=== PATIENT | male | born 1990 | race Hispanic/Latino ===

== ENCOUNTER 2016-09-06 17:52 | Emergency (ER) | payer MEDICAID ==
--- NOTE | 2016-09-06 21:58 | Emergency Department Report ---
ED General Adult HPI - General Chief complaint: Sore Throat Stated complaint: THROAT PAIN/GROWTH ON GROIN Time Seen by Provider: 09/06/16 21:48 Source: patient Mode of arrival: Ambulatory Limitations: No Limitations - History of Present Illness Initial comments: PT c/o sore throat x 2 days. PT states there is some improvement in pain today. PT States he feels drainage. PT also states that he noticed a bump to his groin 2 days ago. pt denies fevers, chills, n/v MD Complaint: sore throat -: Gradual Location: mouth, genitals Radiation: non-radiation Quality: dull, other (tender ) Consistency: constant Worsens with: none Associated Symptoms: denies: cough, headaches, nausea/vomiting, rash - Related Data Home Medications Medication Instructions Recorded Confirmed Last Taken Divalproex Sodium [Depakote] 500 mg PO DAILY 09/20/15 09/21/15 Unknown LORazepam [Ativan] 1 mg PO DAILY 09/20/15 09/21/15 Unknown OLANzapine [ZyPREXA] 10 mg PO DAILY 09/20/15 09/21/15 Unknown Sertraline [Zoloft] 25 mg PO QDAY 09/20/15 09/20/15 Unknown Previous Rx's Medication Instructions Recorded Last Taken Type Cetirizine HCl/Pseudoephedrine 1 each PO BID PRN #12 tab.er.12h 09/06/16 Unknown Rx [Cetirizine-Pse ER 5-120 mg Tab] Sulfamethoxazole/Trimethoprim 1 each PO BID #20 tablet 09/06/16 Unknown Rx [Bactrim DS TAB] Allergies Allergy/AdvReac Type Severity Reaction Status Date / Time No Known Allergies Allergy Unverified 09/20/15 12:31 ED Review of Systems ROS: Stated complaint: THROAT PAIN/GROWTH ON GROIN Other details as noted in HPI Comment: All other systems reviewed and negative Constitutional: denies: chills, fever ENT: throat pain. denies: congestion Respiratory: denies: cough, shortness of breath Gastrointestinal: denies: abdominal pain Genitourinary: other (mass to scrotum ). denies: discharge, testicular pain, testicular mass ED Past Medical Hx - Past Medical History Previous Medical History?: Yes Hx Psychiatric Treatment: Yes (schizoeffective disorder) - Surgical History Past Surgical History?: No - Social History Smoking Status: Current Every Day Smoker Substance Use Type: Alcohol - Medications Home Medications: Home Medications Medication Instructions Recorded Confirmed Last Taken Type Divalproex Sodium [Depakote] 500 mg PO DAILY 09/20/15 09/21/15 Unknown History LORazepam [Ativan] 1 mg PO DAILY 09/20/15 09/21/15 Unknown History OLANzapine [ZyPREXA] 10 mg PO DAILY 09/20/15 09/21/15 Unknown History Sertraline [Zoloft] 25 mg PO QDAY 09/20/15 09/20/15 Unknown History Cetirizine HCl/Pseudoephedrine 1 each PO BID PRN #12 tab.er.12h 09/06/16 Unknown Rx [Cetirizine-Pse ER 5-120 mg Tab] Sulfamethoxazole/Trimethoprim 1 each PO BID #20 tablet 09/06/16 Unknown Rx [Bactrim DS TAB] ED Physical Exam - General Limitations: No Limitations General appearance: alert, in no apparent distress - Head Head exam: Present: atraumatic, normocephalic - Eye Eye exam: Present: normal appearance. Absent: conjunctival injection - ENT ENT exam: Present: normal exam, mucous membranes moist, TM's normal bilaterally , normal external ear exam - Expanded ENT Exam Expanded Mouth exam: Absent: drooling, trismus Throat exam: Positive: other (moderate amount of clear post nasal drainage ). Negative: tonsillar erythema, tonsillomegaly, tonsillar exudate, R peritonsillar mass, L peritonsillar mass - Neck Neck exam: Present: normal inspection, full ROM. Absent: lymphadenopathy - Respiratory Respiratory exam: Present: normal lung sounds bilaterally. Absent: respiratory distress - Cardiovascular Cardiovascular Exam: Present: regular rate, normal rhythm, normal heart sounds - GI/Abdominal GI/Abdominal exam: Present: soft. Absent: tenderness - exam: Present: circumcision. 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 Absent: tenderness - Neurological Exam Neurological exam: Present: alert, oriented X3 - Psychiatric Psychiatric exam: Present: normal mood, flat affect - Skin Skin exam: Present: warm, dry, erythema (to abscess ) ED Course Vital Signs 09/06/16 18:01 Temperature 98.6 F Pulse Rate 102 H Respiratory 16 Rate Blood Pressure 144/98 O2 Sat by Pulse 100 Oximetry - Reevaluation(s) Reevaluation #1: 09/06/16 22:01 PT aware of dx and plan of care. PT aware the abscess is not ready to be drained yet. PT aware he will be started on antibiotics. PT advised to do warm compresses and return in 2 days for recheck Reevaluation #2: 09/06/16 22:10 pt's bp repeated, bp improved. pt aware his bp will need to be recheck on follow up - Pulse Oximetry Interpretation Digit-Finger Initial Pulse Oximetry Readin Actions Taken: none ED Medical Decision Making - Differential Diagnosis strep phayrngits, uri, abscess Critical care attestation.: If time is entered above; I have spent that time in minutes in the direct care of this critically ill patient, excluding procedure time. ED Disposition Clinical Impression: Post-nasal drainage, Abscess of groin, left Disposition: DISCHARGED TO HOME OR SELFCARE Is pt being admited?: No Does the pt Need Aspirin: No Condition: Stable Instructions: Allergic Rhinitis (ED), Allergies (ED), Abscess (ED) Additional Instructions: Warm compresses to abscess at least 4 times a day. Follow up with PCP or return to the ED in 2 days for recheck Return to the ED if you develop fevers, chills, nausea, vomiting or have concerns Recheck BP on your follow up Prescriptions: Cetirizine HCl/Pseudoephedrine [Cetirizine-Pse ER 5-120 mg Tab] 1 each PO BID PRN #12 tab.er.12h PRN Reason: Allergy Symptoms Sulfamethoxazole/Trimethoprim [Bactrim DS TAB] 1 each PO BID #20 tablet Referrals: PRIMARY CARE, [Primary Care Provider] - 3-5 Days Forms: Work/School Release Form(ED) Time of Disposition: 22:04
[2016-09-06 22:12] VITALS: BP 134/88
== END 2016-09-06 22:54 | disposition home or self-care (01) ==
LOC: ED 17:52
DX: L02.214 Cutaneous abscess of groin (principal); R09.81 Nasal congestion; F17.200 Nicotine dependence, unspecified, uncomplicated
CPT/HCPCS: 99282

== ENCOUNTER 2016-12-14 23:33 | Emergency (ER) | payer MEDICAID ==
[2016-12-15] MEDS ORDERED: MOTRIN PO ONE (04:28)
--- NOTE | 2016-12-15 04:28 | Emergency Department Report ---
HPI - General Chief Complaint: Dental/Oral Time Seen by Provider: 12/15/16 03:49 - HPI HPI: Patient here reported of toothache 2 days. Denies any fever or chills. Pain is located and his right lower back tooth. Pain is 2 out of 10. Denies any facial swelling. No access the dentist. ED Past Medical Hx - Past Medical History Previous Medical History?: Yes Hx Psychiatric Treatment: Yes (schizoeffective disorder) - Surgical History Past Surgical History?: No - Family History Family history: no significant - Social History Smoking Status: Current Every Day Smoker Substance Use Type: Alcohol - Medications Home Medications: Home Medications Medication Instructions Recorded Confirmed Last Taken Type Divalproex Sodium [Depakote] 500 mg PO DAILY 09/20/15 12/15/16 1 Day Ago History LORazepam [Ativan] 1 mg PO DAILY 09/20/15 12/15/16 Unknown History OLANzapine [ZyPREXA] 10 mg PO DAILY 09/20/15 12/15/16 1 Day Ago History Acetaminophen/Codeine [Tylenol 1 tab PO Q6H PRN #12 tab 12/15/16 Unknown Rx /Codeine # 3 tab] Amoxicillin [Amoxicillin TAB] 875 mg PO BID #20 tablet 12/15/16 Unknown Rx Ibuprofen [Motrin] 600 mg PO Q8H PRN #15 tablet 12/15/16 Unknown Rx ED Review of Systems ROS: Stated complaint: TOOTHACHE/NECK PAIN/ORBITAL PAIN Other details as noted in HPI Comment: All other systems reviewed and negative Constitutional: denies: chills, fever Eyes: denies: eye pain, eye discharge ENT: dental pain. denies: ear pain, throat pain, hearing loss, epistaxis, congestion Respiratory: no symptoms reported Cardiovascular: denies: chest pain, palpitations, edema, syncope Gastrointestinal: denies: nausea, vomiting Musculoskeletal: denies: back pain, joint swelling, arthralgia Skin: denies: rash Neurological: denies: headache Physical Exam - Physical Exam Vital Signs: Vital Signs 12/15/16 01:11 Temperature 97.3 F L Pulse Rate 93 H Respiratory 16 Rate Blood Pressure 140/89 O2 Sat by Pulse 97 Oximetry General: This is a 26-year-old male well-nourished well-developed in no acute distress. Physical Exam: Head: Normocephalic atraumatic Mouth: Moist, no pharyngeal exudate or erythema. Uvula is midline and oral airway is patent. Positive gingival enlargement with dental tenderness to right lower tooth #32. No cellulitis or induration noted. Noted fractured tooth to #32. noted multiple dental caries.. No facial swelling. No peritonsillar abscesses. Neck: Supple, no C-spine tenderness, no tracheal deviation. Nontender to palpate. no adenopathy Ears: Bilateral TMs pearly nova.bilateral EAC without any redness swelling or drainage Eyes: Bilateral pupils equal and reactive to light, bilateral EOM intact. Bilateral sclera and conjunctiva without injection. Normal accommodation Nose: Mucosa moist, normal mucosa. maxillary and frontal sinus non-tender to palpate. Lungs: Clear to auscultate bilaterally no rhonchi wheezes or rales. Normal work of breathing extremity; No CCE. +2 pulses. No neurovascular compromise Cardiovascular: S1-S2, regular rate rhythm. No murmurs. Skin: clean Dry and intact no rash no lesions Psych: Normal mood and behavior ED Course Vital Signs 12/15/16 01:11 Temperature 97.3 F L Pulse Rate 93 H Respiratory 16 Rate Blood Pressure 140/89 O2 Sat by Pulse 97 Oximetry - Reevaluation(s) Reevaluation #1: 12/15/16 04:40 Patient given Motrin 800 mg in emergency room for toothache. ED Medical Decision Making - Medical Decision Making ED course: Patient here for toothache and found to have multiple dental caries, gingival enlargement and fractured tooth. I discussed the patient that I can put him on antibiotic and pain medication but he will need to follow up with dentist. Patient given Motrin 800 mg in emergency room. I instructed patient to see discharge instruction paperwork for dental clinic referral. He was undescended discharge diagnosis and treatment plan and discharged home with prescription for Motrin, Tylenol 3 and amoxicillin. Critical care attestation.: If time is entered above; I have spent that time in minutes in the direct care of this critically ill patient, excluding procedure time. ED Disposition Clinical Impression: Toothache, Gingival enlargement, Dental caries noted on examination Fractured tooth Qualifiers: Encounter type: initial encounter Fracture type: closed Qualified Code(s): S02.5XXA - Fracture of tooth (traumatic), initial encounter for closed fracture Disposition: TO HOME OR SELFCARE Is pt being admited?: No Does the pt Need Aspirin: No Condition: Stable Instructions: Dental Caries (ED), Toothache (ED) Additional Instructions: Please see dentist information in U discharge paperwork and call tomorrow to schedule an appointment for visit. You have poor gums and fractured tooth that needs to be repaired so you will need to take antibiotic as prescribed and follow up with a dentist. Please do not drive or operate heavy machinery while taking Tylenol No. 3 as this medication will cause drowsiness Prescriptions: Acetaminophen/Codeine [Tylenol /Codeine # 3 tab] 1 tab PO Q6H PRN #12 tab PRN Reason: Toothache Amoxicillin [Amoxicillin TAB] 875 mg PO BID #20 tablet Ibuprofen [Motrin] 600 mg PO Q8H PRN #15 tablet PRN Reason: Pain Referrals: [facility] [Outside] - 2-3 Days Forms: Work/School Release Form(ED)
[2016-12-15 04:58] VITALS: BP 128/80
== END 2016-12-15 04:58 | disposition home or self-care (01) ==
LOC: ED 23:33
DX: S02.5XXA Fracture of tooth (traumatic), initial encounter for closed fracture (principal); K02.9 Dental caries, unspecified; F20.9 Schizophrenia, unspecified; F17.210 Nicotine dependence, cigarettes, uncomplicated; X58.XXXA Exposure to other specified factors, initial encounter; Y93.89 Activity, other specified; Y92.89 Other specified places as the place of occurrence of the external cause; Y99.8 Other external cause status
CPT/HCPCS: 99282

== ENCOUNTER 2017-05-16 07:16 | Emergency (ER) | payer MEDICAID ==
[2017-05-16 08:27] LABS: Hemoglobin TNR gm/dl (11.8-15.2); Red Blood Count TNR M/mm3 (3.65-5.03)
[2017-05-16 08:28] LABS: Hematocrit TNR % (35.5-45.6)
[2017-05-16 08:29] LABS: Mean Corpuscular HGB Conc TNR % (32-34); Mean Corpuscular Hemoglobin TNR pg (28-32); Mean Corpuscular Volume TNR fl (84-94); Platelet Count TNR K/mm3 (140-440); Red Cell Distribution Width TNR % (13.2-15.2)
[2017-05-16 08:30] LABS: Basophils % (Auto) TNR % (0.0-1.8); Eosinophils % (Auto) TNR % (0.0-4.3)
[2017-05-16 08:33] LABS: BUN/Creatinine Ratio 18; Blood Urea Nitrogen 14 mg/dL (9-20); Calcium 9.6 mg/dL (8.4-10.2); Carbon Dioxide 24 mmol/L (22-30); Chloride 98.7 mmol/L (98-107); Glucose 91 mg/dL (75-100); Sodium 139 mmol/L (137-145); White Blood Count TNR K/mm3 (4.5-11.0)
[2017-05-16 08:37] LABS: Anion Gap 21 mmol/L; Potassium 4.6 mmol/L (3.6-5.0)
[2017-05-16 09:05] LABS: Basophils % (Auto) 0.7 % (0.0-1.8); Hematocrit 40.9 % (35.5-45.6); Hemoglobin 13.6 gm/dl (11.8-15.2); Mean Corpuscular HGB Conc 33 % (32-34); Mean Corpuscular Hemoglobin 28 pg (28-32); Mean Corpuscular Volume 84 fl (84-94); Mean Platelet Volume 11.3 fl (6-12); Platelet Count 105 K/mm3 (140-440); Red Blood Count 4.86 M/mm3 (3.65-5.03); Red Cell Distribution Width 14.2 % (13.2-15.2); White Blood Count 5.9 K/mm3 (4.5-11.0)
[2017-05-16 10:53] LABS: Urine Drugs of Abuse Note Disclamer
[2017-05-16 11:02] LABS: Bilirubin,Urine NEG (Negative); Blood,Urine NEG (Negative); Ketones,Urine NEG (Negative); Leukocyte Esterase,Urine NEG (Negative); Mucus,Urine FEW /HPF; Nitrite,Urine NEG (Negative); Protein,Urine <15 mg/dL mg/dL (Negative); RBC,Urine < 1.0 /HPF (0.0-6.0); WBC,Urine < 1.0 /HPF (0.0-6.0)
[2017-05-16] MEDS ORDERED: TYLENOL PO PRN (13:14)
[2017-05-16] MEDS ORDERED: MILK OF MAGNESIA PO PRN (13:14)
[2017-05-16] MEDS ORDERED: ATIVAN PO PRN (13:14)
[2017-05-16] MEDS ORDERED: ALUM-MAG HYDROX-SIMETH 200-200-20MG/5ML PO PRN (13:14)
[2017-05-16] MEDS ORDERED: ATIVAN IM PRN (13:15)
--- NOTE | 2017-05-16 13:16 | Emergency Department Report ---
HPI - General Chief Complaint: Psych Time Seen by Provider: 05/16/17 08:10 - HPI HPI: The patient's is a 26 yo male with a history of schizophrenia noncompliant with acute psychotic medication regimen, who presents for evaluation of mental health. The patient's family says that the patient has been withdrawing, delusional, physically aggressive toward the family pets, symptoms constant and severe for the past one day. The patient states that he is unsure if he is currently experiencing suicidal ideations. The patient denies fever, headache, unexplained weight loss or weight gain, heat or cold intolerance, skin, hair, or nail changes, neuro deficits, homicidal ideations. ED Past Medical Hx - Past Medical History Previous Medical History?: Yes Hx Psychiatric Treatment: Yes (schizoeffective disorder) - Surgical History Past Surgical History?: No - Social History Smoking Status: Current Every Day Smoker Substance Use Type: Alcohol - Medications Home Medications: Home Medications Medication Instructions Recorded Confirmed Last Taken Type OLANzapine [ZyPREXA] 2.5 mg PO QDAY 05/16/17 05/16/17 Unknown History ED Review of Systems ROS: Stated complaint: MENTAL HEALTH EVALUATION Other details as noted in HPI Constitutional: denies: fever ENT: denies: throat or neck pain Respiratory: denies: cough, shortness of breath Cardiovascular: denies: chest pain Endocrine: denies unexplained weight loss or gain Gastrointestinal: denies: abdominal pain, nausea Genitourinary: denies: dysuria Musculoskeletal: denies: leg swelling Skin: denies: rash Neurological: denies: headache Hematological/Lymphatic: denies: easy bleeding or easy bruising Psych: reports aggressiveness (per sister) Physical Exam - Physical Exam Vital Signs: Vital Signs 05/16/17 07:39 Temperature 98.2 F Pulse Rate 113 H Respiratory 20 Rate Blood Pressure 131/80 O2 Sat by Pulse 98 Oximetry Physical Exam: General: well-nourished, well-developed, no acute distress Head: Normocephalic, atraumatic Eyes: normal sclera ENT: Mucous membranes are pink and moist Neck: trachea midline, neck supple, No neck stiffness, no cervical adenopathy Respiratory: Breath sounds equal bilaterally, no wheezing, rales, or rhonchi Cardio: S1 and S2 present, no murmurs, rubs, gallops, capillary refill is brisk Musc: No pitting edema Skin: No rash Neuro: no facial drooping, normal speech Psych: Flat affect, patient withdrawn, poor insight, delusional ED Course Vital Signs 05/16/17 07:39 Temperature 98.2 F Pulse Rate 113 H Respiratory 20 Rate Blood Pressure 131/80 O2 Sat by Pulse 98 Oximetry ED Medical Decision Making - Lab Data Result diagrams: 05/16/17 08:41 05/16/17 07:51 - Medical Decision Making The patient was seen and examined by myself. The patient is placed on a director cardiac and continuous pulse ox. On initial evaluation, the patient was found to be in no distress. Labs are obtained. Lab results are grossly unremarkable. The patient is medically clear. Mental health is consulted. Mental health evaluates the patient and agrees that the patient is at risk of harm to self. A 1013 is completed. The patient will be admitted to a psychiatric facility once bed placement is obtained. Critical care attestation.: If time is entered above; I have spent that time in minutes in the direct care of this critically ill patient, excluding procedure time. ED Disposition Clinical Impression: Schizophrenia, acute, Acute psychosis Disposition: [id number] PSY HOSP/PSY UNIT Is pt being admited?: No Does the pt Need Aspirin: No Condition: Fair Referrals: PRIMARY CARE [Primary Care Provider] - 3-5 Days Time of Disposition: 13:16
--- NOTE | 2017-05-16 16:18 | Consultation ---
History of Present Illness - Reason for Consult Consult date: 05/16/17 Reason for consult: psychiatric evaluation - Chief Complaint Chief complaint: nonverbal - History of Present Psychiatric Illness Juan Pablo Harley is a 26 yo male with a history of schizophrenia brought in for bizarre behavior. Juan Pablo's [id number] provided collateral. She and her are from [place] and came to visit. While in [place] they realized how Juan Pablo has decompensated. He has been pacing for hours and has not slept in 2 -3 days. He is non verbal on interview. He was reportedly aggressive with a pet. This is not his usual behavior per the family. He has been peeping at neighbors and urinating in their yards. He was hospitalized 2 months ago for psychosis and followed up at [facility], Dr. Downs. He was recently taken off depakote and started on zyprexa 2.5mg daily. He is not on any other medications , injection or oral. He normally lives with his 79 year old grandmother. One year ago his caregiver and then he went to live with his grandmother. Unable to obtain additional information from the patient. His [id number] says he has told her recently he hears voices which tell him to do things. He has also told her he has suicidal and homicidal ideation when he is "sick." She says he has become fearful and hesitant with most of his actions. She says he has been eating. He has a history of smoking marijuana occasionally and drinks alcohol occasionally. With his last hospitalization he was aware and sought treatment before he worsened. Medications and Allergies Allergies Allergy/AdvReac Type Severity Reaction Status Date / Time No Known Allergies Allergy Unverified 09/20/15 12:31 Home Medications Medication Instructions Recorded Confirmed Last Taken Type OLANzapine [ZyPREXA] 2.5 mg PO QDAY 05/16/17 05/16/17 Unknown History Active Meds: Active Medications Acetaminophen (Tylenol) 650 mg PO Q4HR PRN PRN Reason: Pain MILD(1-3)/Fever >100.5/ALVARENGA Al Hydrox/Mg Hydrox/Simethicone (Alum-Mag Hydrox-Simeth [id number]/5ml) 30 ml PO Q4HR PRN PRN Reason: Indigestion Lorazepam (Ativan) 1 mg PO Q4HR PRN PRN Reason: Agitation Last Admin: 05/16/17 15:04 Dose: 1 mg Lorazepam (Ativan) 1 mg IM Q4H PRN PRN Reason: Agitation Magnesium Hydroxide (Milk Of Magnesia) 30 ml PO Q12HR PRN PRN Reason: Constipation Past psychiatric history - Past Medical History Past Medical History: No medical history - past Psychiatric treatment and history Psych: Schizophrenia - Social History Social history: lives with family Mental Status Exam - Vital signs Last Vital Signs Temp 98.2 F 05/16/17 07:39 Pulse 113 H 05/16/17 07:39 Resp 20 05/16/17 07:39 BP 131/80 05/16/17 07:39 Pulse Ox 98 05/16/17 07:39 - Exam Narrative exam: he does not make eye contact psychomotor activity is restless unable to obtain thought process or content. Results Result Diagrams: 05/16/17 08:41 05/16/17 07:51 Abnormal lab results 05/16/17 Range/Units 08:41 Plt Count 105 L (140-440) K/mm3 Lymph % (Auto) 38.5 H (13.4-35.0) % Cloud % (Auto) 10.6 H (0.0-7.3) % All other labs normal. Assessment and Plan Assessment and plan: Impression:Psychosis r/o catatonia Dx: schizophrenia r/o schizoaffective d/o Recommendation: 1013 and transfer to inpatient psychiatric facility for stabilization. ck ordered. Ativan was previously ordered for agitation. No scheduled medication ordered until ck reviewed.
[2017-05-17 09:02] VITALS: BP 126/64
--- NOTE | 2017-05-17 13:47 | Progress Note ---
Subjective - Reason for Consult Consult date: 05/17/17 Reason for consult: Psychiatry Follow-up - Chief Complaint Chief complaint: "Hello" 26 yo male with a history of schizophrenia brought in for bizarre behavior. Today patient is calm and cooperative, but disorganized during the assessment. His answers to questions asked of him were not logical. When asked about being suicidal, he could not confirm or deny. He denies HI's and AVH's. Mental Status Exam - Vital signs Last Vital Signs Temp 98.7 F 05/17/17 09:01 Pulse 88 05/17/17 09:01 Resp 20 05/17/17 09:02 BP 126/64 05/17/17 09:01 Pulse Ox 100 05/17/17 09:02 - Exam Narrative exam: MSE: Appearance: calm, cooperative Behavior: regular eye contact Speech: regular rate and tone Mood: "okay" Affect: constricted Thought Process: not logical Thought Content: denies HI's and AVH's, disorganized Motor Activity: sitting up in bed Cognition: A/O x3 Insight: poor Judgment: poor Assessment and Plan Impression: Schizophrenia. Today patient is calm and cooperative, but disorganized during the assessment. Positive for PCP. DDx: R/O Schizoaffective DO Recommendation: Continue 1013 and with placement to RTC today.
== END 2017-05-17 09:11 ==
LOC: ED 07:16 → EEVIPCON 07:16 → ED 05-17 09:11
DX: F23 Brief psychotic disorder (principal); F20.89 Other schizophrenia; F17.200 Nicotine dependence, unspecified, uncomplicated
CPT/HCPCS: 36415; 80048; 80307; 81001; 82550; 85025; 99285; G0480; 80320

== ENCOUNTER 2017-06-13 13:42 | Emergency (ER) | payer MEDICAID ==
[2017-06-13 13:49] VITALS: BP 120/70
--- NOTE | 2017-06-13 14:30 | Emergency Department Report ---
Chief Complaint: Urogenital-Male Stated Complaint: SPHYLLIS Time Seen by Provider: 06/13/17 14:29 - HPI History of Present Illness: vss no life threat waiting in wr - Exam Vital Signs: Vital Signs 06/13/17 13:45 Temperature 98.3 F Pulse Rate 100 H Respiratory 16 Rate Blood Pressure 120/70 O2 Sat by Pulse 100 Oximetry MSE screening note: Focused history and physical exam performed. Due to findings the following was ordered: ED Disposition for MSE Condition: Stable
[2017-06-13 15:13] LABS: Bilirubin,Urine NEG (Negative); Blood,Urine NEG (Negative); Color,Urine Yellow (Yellow); Mucus,Urine FEW /HPF; Nitrite,Urine NEG (Negative); Protein,Urine <15 mg/dL mg/dL (Negative)
== END 2017-06-13 15:00 | disposition left against medical advice (07) ==
LOC: ED 13:42
DX: A53.9 Syphilis, unspecified (principal); Z53.21 Procedure and treatment not carried out due to patient leaving prior to being seen by health care provider
CPT/HCPCS: 81001

== ENCOUNTER 2017-06-14 18:20 | Emergency (ER) | payer MEDICAID ==
[2017-06-14 20:21] LABS: Bilirubin,Urine NEG (Negative); Blood,Urine NEG (Negative); Color,Urine Yellow (Yellow); Nitrite,Urine NEG (Negative); Protein,Urine <15 mg/dL mg/dL (Negative); Urobilinogen,Urine < 2.0 mg/dL (<2.0); WBC,Urine < 1.0 /HPF (0.0-6.0)
[2017-06-14 20:29] LABS: Amphetamine Screen,Urine PRESUMPTIVE NEGATIVE; Benzodiazepines Screen,Urine PRESUMPTIVE NEGATIVE; Cannabinoid Screen,Urine PRESUMPTIVE NEGATIVE; Cocaine Screen,Urine PRESUMPTIVE NEGATIVE; Methadone Screen,Urine PRESUMPTIVE NEGATIVE; Opiate Screen,Urine PRESUMPTIVE NEGATIVE
[2017-06-14 21:06] LABS: Basophils % (Auto) 0.5 % (0.0-1.8); Eosinophils % (Auto) 0.6 % (0.0-4.3); Hematocrit 42.2 % (35.5-45.6); Hemoglobin 13.9 gm/dl (11.8-15.2); Lymphocytes # (Auto) 2.3 K/mm3 (1.2-5.4); Lymphocytes % (Auto) 34.5 % (13.4-35.0); Mean Corpuscular HGB Conc 33 % (32-34); Mean Corpuscular Hemoglobin 28 pg (28-32); Mean Corpuscular Volume 85 fl (84-94); Monocytes # (Auto) 0.5 K/mm3 (0.0-0.8); Monocytes % (Auto) 7.4 % (0.0-7.3); Red Blood Count 4.95 M/mm3 (3.65-5.03); Red Cell Distribution Width 15.3 % (13.2-15.2)
--- NOTE | 2017-06-14 21:18 | Emergency Department Report ---
ED Psych HPI - General Chief Complaint: Psych Stated Complaint: SUICIDAL THOUGHTS Time Seen by Provider: 06/14/17 21:07 Source: EMS Mode of arrival: Ambulatory Limitations: No Limitations - History of Present Illness Initial Comments: 26 YO MALE C/O SUICIDAL IDEATION AND WANTED [employer] THE POLICE TO KILL HIM. HE ALSO IS HERE FOR BURNING ON URINATION FOR A COUPLE OF WEEKS. HE DENIES DISCHARGE FROM PENIS OR RASH, OR ULCERATIONS, OR VESICLES. HE AND UNPROTECTED SEX WITH SOME ONE AND THINKS HE HAS AN STD. MD Complaint: suicidal ideation -: Sudden History of same: Yes If Self Harm: admits thoughts of - Related Data Home Medications Medication Instructions Recorded Confirmed Last Taken OLANzapine [ZyPREXA] 2.5 mg PO QDAY 05/16/17 05/16/17 Unknown Allergies Allergy/AdvReac Type Severity Reaction Status Date / Time blueberry Allergy Hives Verified 06/13/17 13:45 ED Review of Systems ROS: Stated complaint: SUICIDAL THOUGHTS Other details as noted in HPI Constitutional: denies: chills, fever Eyes: denies: eye pain, eye discharge, vision change ENT: denies: ear pain, throat pain Respiratory: denies: cough, shortness of breath, wheezing Cardiovascular: denies: chest pain, palpitations Endocrine: no symptoms reported Gastrointestinal: denies: abdominal pain, nausea, diarrhea Genitourinary: dysuria Musculoskeletal: denies: back pain, joint swelling, arthralgia Skin: denies: rash, lesions Neurological: denies: headache, weakness, paresthesias Psychiatric: denies: anxiety, depression Hematological/Lymphatic: denies: easy bleeding, easy bruising ED Past Medical Hx - Past Medical History Previous Medical History?: Yes Hx Psychiatric Treatment: Yes (schizoeffective disorder) - Surgical History Past Surgical History?: No - Social History Smoking Status: Current Every Day Smoker Substance Use Type: Alcohol - Medications Home Medications: Home Medications Medication Instructions Recorded Confirmed Last Taken Type OLANzapine [ZyPREXA] 2.5 mg PO QDAY 05/16/17 05/16/17 Unknown History ED Physical Exam - General Limitations: No Limitations General appearance: alert, in no apparent distress - Head Head exam: Present: atraumatic, normocephalic - Eye Eye exam: Present: normal appearance, EOMI - ENT ENT exam: Present: mucous membranes moist - Neck Neck exam: Present: normal inspection - Respiratory Respiratory exam: Present: normal lung sounds bilaterally. Absent: respiratory distress - Cardiovascular Cardiovascular Exam: Present: regular rate, normal rhythm. Absent: systolic murmur, diastolic murmur, rubs, gallop - GI/Abdominal GI/Abdominal exam: Present: soft, normal bowel sounds - Rectal Rectal exam: Present: deferred - Extremities Exam Extremities exam: Present: normal inspection, full ROM - Back Exam Back exam: Present: normal inspection, full ROM - Neurological Exam Neurological exam: Present: alert, oriented X3, CN II-XII intact - Psychiatric Psychiatric exam: Present: normal affect, normal mood, suicidal ideation. Absent: depressed, agitated, anxious, manic, homicidal ideation - Skin Skin exam: Present: warm, dry, intact, normal color. Absent: rash ED Course Vital Signs 06/14/17 06/14/17 06/14/17 19:38 19:49 19:53 Temperature 98.6 F Pulse Rate 79 Respiratory 18 18 Rate Blood Pressure 116/70 O2 Sat by Pulse 100 98 Oximetry ED Medical Decision Making - Lab Data Result diagrams: 06/14/17 20:36 06/14/17 20:36 - Medical Decision Making MENTAL HEALTH CONTINUOUS CONVEYOR SCREEN DRIER HAS DETERMINED THAT THE PT IS NOT SUICIDAL BUT SAID THTA TO BEEN SEEN QUICKER FOR HIS STD. HE WILL BE REFERRED OUTPT Critical care attestation.: If time is entered above; I have spent that time in minutes in the direct care of this critically ill patient, excluding procedure time. ED Disposition Clinical Impression: STD (sexually transmitted disease), Suicidal ideation Disposition: - TO HOME OR SELFCARE Is pt being admited?: No Does the pt Need Aspirin: No Condition: Stable Instructions: Sexually Transmitted Diseases (ED), Suicide Prevention for Adults (ED) Additional Instructions: PLEASE FOLLOW UP AT THE [facility] IF YOU FEEL DEPRESSED OR SUICIDAL. PLEASE HAVE YOUR SEXUAL PARTNERS TREATED FOR STD. Referrals: IFRAH SARMIENTO MD [Primary Care Provider] - 3-5 Days [facility] [Outside] - 3-5 Days
[2017-06-14 21:20] LABS: BUN/Creatinine Ratio 14; Blood Urea Nitrogen 11 mg/dL (9-20); Calcium 9.2 mg/dL (8.4-10.2); Hemolysis Index 4
[2017-06-14 21:25] LABS: Platelet Count 97 K/mm3 (140-440)
[2017-06-14 22:08] LABS: Alanine Aminotransferase 11 units/L (7-56); Albumin 4.6 g/dL (3.9-5)
[2017-06-14 22:25] LABS: Bilirubin,Direct < 0.2 mg/dL (0-0.2)
[2017-06-15] MEDS ORDERED: ROCEPHIN IM ONE (04:02)
[2017-06-15] MEDS ORDERED: XYLOCAINE 1% MPF 5 mL INFILTRATI ONE (04:02)
[2017-06-15] MEDS ORDERED: ZITHROMAX PO ONE (04:02)
[2017-06-15 04:50] VITALS: BP 139/97
== END 2017-06-15 05:36 | disposition home or self-care (01) ==
LOC: ED 18:20 → EEVIPCON 18:20 → ED 06-15 05:36
DX: R45.851 Suicidal ideations (principal); A64 Unspecified sexually transmitted disease; F17.200 Nicotine dependence, unspecified, uncomplicated; Z91.018 Allergy to other foods
CPT/HCPCS: 36415; 80048; 80074; 80307; 81001; 85025; 96372; 99284; G0480; J0696; 80320

== ENCOUNTER 2017-10-25 14:27 | Emergency (ER) | payer MEDICAID ==
[2017-10-25 15:35] LABS: Basophils % (Auto) 0.7 % (0.0-1.8); Eosinophils % (Auto) 1.1 % (0.0-4.3); Hematocrit 44.2 % (35.5-45.6); Hemoglobin 14.5 gm/dl (11.8-15.2); Lymphocytes # (Auto) 2.2 K/mm3 (1.2-5.4); Lymphocytes % (Auto) 50.4 % (13.4-35.0); Mean Corpuscular HGB Conc 33 % (32-34); Mean Corpuscular Hemoglobin 28 pg (28-32); Mean Corpuscular Volume 86 fl (84-94); Monocytes # (Auto) 0.5 K/mm3 (0.0-0.8); Monocytes % (Auto) 10.5 % (0.0-7.3); Red Blood Count 5.13 M/mm3 (3.65-5.03); Red Cell Distribution Width 13.6 % (13.2-15.2)
[2017-10-25 15:38] LABS: Platelet Count 120 K/mm3 (140-440)
[2017-10-25 15:48] LABS: BUN/Creatinine Ratio 15; Blood Urea Nitrogen 15 mg/dL (9-20); Calcium 9.6 mg/dL (8.4-10.2); Hemolysis Index 7
[2017-10-25 16:00] LABS: Bilirubin,Urine SM (Negative); Blood,Urine NEG (Negative); Color,Urine Amber (Yellow); Mucus,Urine 3+ /HPF
[2017-10-25 16:04] LABS: Ictotest,Urine Negative (Negative)
[2017-10-25 16:09] LABS: Amphetamine Screen,Urine PRESUMPTIVE NEGATIVE; Benzodiazepines Screen,Urine PRESUMPTIVE NEGATIVE; Cannabinoid Screen,Urine PRESUMPTIVE NEGATIVE; Cocaine Screen,Urine PRESUMPTIVE NEGATIVE; Methadone Screen,Urine PRESUMPTIVE NEGATIVE; Opiate Screen,Urine PRESUMPTIVE NEGATIVE
--- NOTE | 2017-10-25 21:51 | Emergency Department Report ---
ED Psych HPI - General Chief Complaint: Psych Stated Complaint: ABD PAIN Time Seen by Provider: 10/25/17 16:15 Source: patient Mode of arrival: Ambulatory - History of Present Illness Initial Comments: Patient is a 27-year-old [place]inamese male with past medical history of schizoaffective disease who states that he's having feelings that he wants to hurt someone. Patient states he is hearing voices and is having homicidal ideations. Patient does not have a plan he would like to kill. Patient states the auditory hallucinations are demanding of him to do things. Patient states he is here to get help. - Related Data Home Medications Medication Instructions Recorded Confirmed Last Taken OLANzapine [ZyPREXA] 2.5 mg PO QDAY 05/16/17 05/16/17 Unknown Allergies Allergy/AdvReac Type Severity Reaction Status Date / Time blueberry Allergy Hives Verified 06/13/17 13:45 ED Review of Systems ROS: Stated complaint: ABD PAIN Other details as noted in HPI Comment: All other systems reviewed and negative ED Past Medical Hx - Past Medical History Hx Psychiatric Treatment: Yes (schizoeffective disorder) - Social History Smoking Status: Current Every Day Smoker Substance Use Type: None - Medications Home Medications: Home Medications Medication Instructions Recorded Confirmed Last Taken Type OLANzapine [ZyPREXA] 2.5 mg PO QDAY 05/16/17 05/16/17 Unknown History ED Physical Exam - General Limitations: No Limitations General appearance: alert, in no apparent distress - Head Head exam: Present: atraumatic, normocephalic - Eye Eye exam: Present: normal appearance - ENT ENT exam: Present: mucous membranes moist - Neck Neck exam: Present: normal inspection - Respiratory Respiratory exam: Present: normal lung sounds bilaterally. Absent: respiratory distress - Cardiovascular Cardiovascular Exam: Present: regular rate, normal rhythm. Absent: systolic murmur, diastolic murmur, rubs, gallop - GI/Abdominal GI/Abdominal exam: Present: soft, normal bowel sounds - Rectal Rectal exam: Present: deferred - Extremities Exam Extremities exam: Present: normal inspection - Back Exam Back exam: Present: normal inspection - Neurological Exam Neurological exam: Present: alert, oriented X3 - Psychiatric Psychiatric exam: Present: normal mood, flat affect - Skin Skin exam: Present: warm, dry, intact, normal color. Absent: rash ED Course Vital Signs 10/25/17 10/25/17 15:02 15:48 Temperature 98.2 F 97.6 F Pulse Rate 92 H 96 H Respiratory 18 18 Rate Blood Pressure 112/75 Blood Pressure 131/73 [Left] O2 Sat by Pulse 98 99 Oximetry ED Medical Decision Making - Lab Data Result diagrams: 10/25/17 15:19 10/25/17 15:19 - Medical Decision Making Patient was observed responding to internal stimuli and has disorganized thoughts and homicidal thoughts as well. Patient will be sent to a psych facility for further evaluation. Patient is stable for psych evaluation. Critical care attestation.: If time is entered above; I have spent that time in minutes in the direct care of this critically ill patient, excluding procedure time. ED Disposition Clinical Impression: Homicidal ideation, Acute psychosis Disposition: [id number]/[id number] PSY HOSP/PSY UNIT Is pt being admited?: No Does the pt Need Aspirin: No Condition: Stable Referrals: PRIMARY CARE [Primary Care Provider] - 3-5 Days
[2017-10-26 10:46] LABS: Alanine Aminotransferase 11 units/L (7-56); Lipase 23 units/L (13-60)
--- NOTE | 2017-10-26 14:00 | Consultation ---
History of Present Illness - Reason for Consult Consult date: 10/26/17 Reason for consult: Mental Health Evaluation Requesting physician: CALIN BATRES - Chief Complaint Chief complaint: "I don't know what happened" - History of Present Psychiatric Illness 27-year-old [place] male with past medical history of schizoaffective disease who states that he's having feelings that he wants to hurt someone. Today the patient is calm, but withdrawn during the assessment. He stated having some personal problems that he did not want to talk about. His answers to questions were vague. He denies wanting to kill someone, but would not confirm or deny SI' s when asked. He stated being depressed, hearing voices, and not sleeping the past 3 days. He denies HI's and VH's. He denies recreational drug use and alcohol consumption (etoh). Medications and Allergies Allergies Allergy/AdvReac Type Severity Reaction Status Date / Time blueberry Allergy Hives Verified 06/13/17 13:45 Home Medications Medication Instructions Recorded Confirmed Last Taken Type OLANzapine [ZyPREXA] 2.5 mg PO QDAY 05/16/17 10/25/17 Unknown History Past psychiatric history - Past Medical History Past Medical History: No medical history Past Surgical History: No surgical history - past Psychiatric treatment and history psychiatric treatment history: Seen a psychiatrist for outpatient psy services. Denies a fam psy hx. - Social History Social history: lives with family Mental Status Exam - Vital signs Last Vital Signs Temp 98.2 F 10/26/17 09:45 Pulse 84 10/26/17 09:45 Resp 14 10/26/17 09:45 BP 118/68 10/26/17 09:45 Pulse Ox 99 10/26/17 09:45 - Exam Narrative exam: MSE: Appearance: calm, cooperative Behavior: regular eye contact Speech: regular rate and tone Mood: "depressed" Affect: flat Thought Process: circumstantial Thought Content: denies SI/HI's and VH's Motor Activity: ambulatory Cognition: A/O x 3 Insight: poor Judgment: poor Results Result Diagrams: 10/25/17 15:19 10/25/17 15:19 Abnormal lab results 10/25/17 10/25/17 10/25/17 Range/Units 15:19 15:19 15:19 WBC 4.3 L (4.5-11.0) K/mm3 RBC 5.13 H (3.65-5.03) M/mm3 Plt Count 120 L (140-440) K/mm3 Lymph % (Auto) 50.4 H (13.4-35.0) % [place] % (Auto) 10.5 H (0.0-7.3) % Seg Neutrophils % 37.3 L (40.0-70.0) % Seg Neutrophils # 1.6 L (1.8-7.7) K/mm3 Ur Specific [place] (1.003-1.030) Salicylates < 0.3 L (2.8-20.0) mg/dL Acetaminophen < 5.0 L (10.0-30.0) ug/mL Valproic Acid (50-100) ug/mL 10/25/17 10/26/17 Range/Units 15:46 10:03 WBC (4.5-11.0) K/mm3 RBC (3.65-5.03) M/mm3 Plt Count (140-440) K/mm3 Lymph % (Auto) (13.4-35.0) % [place] % (Auto) (0.0-7.3) % Seg Neutrophils % (40.0-70.0) % Seg Neutrophils # (1.8-7.7) K/mm3 Ur Specific [place] 1.034 H (1.003-1.030) Salicylates (2.8-20.0) mg/dL Acetaminophen (10.0-30.0) ug/mL Valproic Acid < 2.8 L (50-100) ug/mL All other labs normal. Assessment and Plan Assessment and plan: Impression: Unspecified Mood DO with psy features. Today the patient is calm, but withdrawn during the assessment. DDx: Schizoaffective DO, MDD with psychosis, Bipolar DO Recommendation/Plan: Continue 1013 with placement to [facility] today.
[2017-10-26 14:31] VITALS: BP 125/75
== END 2017-10-26 14:29 ==
LOC: ED 14:27 → EEVIPCON 14:27 → ED 10-26 14:29
DX: F20.9 Schizophrenia, unspecified (principal); F17.200 Nicotine dependence, unspecified, uncomplicated; Z91.018 Allergy to other foods
CPT/HCPCS: 36415; 80048; 80164; 80307; 81001; 82150; 83690; 84075; 84450; 84460; 85025; 99284; G0480; 80320